=== PATIENT | male | born 1940 | race Caucasian/White ===

== ENCOUNTER 2018-05-24 00:39 | Outpatient (CLI) | payer OTHER, MEDICARE, SELFPAY ==
--- NOTE | 2018-05-24 11:15 | DI.RAD_ITS ---
SYMPTOMS/DIAGNOSIS: F/U RECURRENT NON SMALL CELL LUNG CA, POST IMMUNOTHERAPY WITH GOOD RESPONSE, ? AREAS OF PROGRESSIVE DISEASE PA AND LATERAL CHEST: Comparison with the previous study of 03/15/18 reveals no appreciable interval change. The patient is apparently status post right upper lobectomy. The lungs are otherwise clear. There is no pleural effusion. The heart is not enlarged. A left subclavian catheter is in stable position. SUMMARY: No appreciable interval change when compared with the prior study of 06/23.
== END 2018-05-24 00:59 ==
PROVIDERS: Visit Provider Internal Medicine Medical Oncology
DX: C34.11 Malignant neoplasm of upper lobe, right bronchus or lung (principal); Z92.25 Personal history of immunosuppression therapy
CPT/HCPCS: 71046

== ENCOUNTER 2018-05-24 01:31 | Outpatient (RCR) | payer OTHER, SELFPAY ==
[2018-05-24] MEDS: Normal Saline Flush 10 ML SYR IVP (11:20)
[2018-05-24] MEDS: Heparin 500 UNITS/5 ML SYRINGE IV (11:20)
[2018-05-24 11:51] LABS: Abs Immature Grans 0.01 k/cumm (0.0-0.09); Absolute Basophil Count 0.03 k/cumm (0.0-0.2); Absolute Eosinophil Count 0.08 k/cumm (0.0-0.7); Absolute Lymphocyte Count 1.13 k/cumm (1.2-3.4); Absolute Monocyte Count 0.76 k/cumm (0.11-0.7); Basophils % 0.4; HCT 32.2 % (40.0-50.0); HGB 10.3 g/dL (13.5-17.5); Immature Grans % 0.1; Lymphocytes % 14.3; Mean Corpuscular Hemoglobin 24.5 pg (27.0-33.0); Mean Corpuscular Volume 76.5 fL (80-95); Mean Platelet Volume 10.4 fL (8.0-11.0); Monocytes % 9.6; Neutrophils % 74.6; Platelet Count 326 x1000/uL (130-400); RBC 4.21 m/cumm (4.50-6.00); RBC Distribution Width 15.6 % (11.8-14.1); White Blood Cell Count 7.91 k/cumm (4.4-10.8)
[2018-05-24 12:08] LABS: ALT 17 U/L (12-78); AST 17 U/L (15-37); Albumin 3.2 g/dL (3.4-5.0); Alkaline Phosphatase 129 U/L (46-116); Anion Gap 9.9 mmol/L (3-11); BUN 16 mg/dL (7-18); Bilirubin, Total 0.3 mg/dL (0.2-1.0); CO2 27.1 mmol/L (21.0-32.0); CREATININE 1.12 mg/dL (0.70-1.30); Calcium 8.7 mg/dL (8.5-10.1); Chloride 97 mmol/L (98-107); Glucose 109 mg/dL (70-100); Potassium 4.1 mmol/L (3.5-5.1); Sodium 134 mmol/L (136-145)
[2018-05-24 16:32] LABS: TSH 1.51 uIU/mL (0.358-3.74)
[2018-05-24 16:50] LABS: T4 8.8 ug/dL (4.5-12.5)
== END 2018-06-05 23:59 | disposition home or self-care (01) ==
LOC: INF 01:31
PROVIDERS: Visit Provider Internal Medicine Medical Oncology
DX: C34.11 Malignant neoplasm of upper lobe, right bronchus or lung (principal); E03.2 Hypothyroidism due to medicaments and other exogenous substances; Z45.2 Encounter for adjustment and management of vascular access device
CPT/HCPCS: 36591; 80053; 84436; 84443; 85025